=== PATIENT | female | born 1960 | race Caucasian/White ===

== ENCOUNTER 2016-09-18 06:11 | Observation (INO) | payer OTHER ==
[~2016-09-18] VITALS: Ht 152.4 cm; Wt 68.1 kg
[~2016-09-18 06:11] MED LIST: FISHCAP4 PO; VITA250T3 PO
[2016-09-18] MEDS ORDERED: METOPROLOL TARTRATE 25 MG TAB PO PRN (06:30)
[2016-09-18] MEDS ORDERED: LACTATED RINGER'S 1000 ML IV PRN (06:30)
[2016-09-18] MEDS ORDERED: INSULIN HUMAN REGULAR 1,000 UNITS/10 ML VIAL SQ PRN (06:30)
[2016-09-18] MEDS ORDERED: POVIDONE IODINE 5% (ANTISEPSIS KIT) 4 APPLICATIONS EACH NARE PRN (06:30)
[2016-09-18] MEDS ORDERED: SODIUM CHLORID 0.9% 500 ML IV PRN (06:30)
[2016-09-18] MEDS ORDERED: CHLORHEXIDINE GLUCONATE 2 % 1 PACK (2 CLOTHS) TOPICAL PRN (06:30)
[2016-09-18 06:45] VITALS: BP 142/80; PULSE 82; RESP 18; TEMP 97.4; O2SAT 98
[2016-09-18] MEDS ORDERED: VANCOMYCIN 1,000 MG/NS 250 ML IV PRN ×2 (06:45)
[2016-09-18] MEDS ORDERED: SODIUM CHLOR 0.9% 1000 ML INJ 1,000 ML IV SCH (06:45)
[2016-09-18] MEDS ORDERED: MIDAZOLAM HCL 2 MG/2 ML VIAL ONE (07:49)
[2016-09-18] MEDS ORDERED: ACETAMINOPHEN 1000 MG/100 ML VIAL IV ONE (07:49)
[2016-09-18] MEDS ORDERED: ARTIFICIAL TEARS OPTH OINT 3.5 APPLIC/3.5 GM TUBO ONE (07:49)
[2016-09-18] MEDS ORDERED: FAMOTIDINE 20 MG/2 ML VIAL ONE (07:50)
[2016-09-18] MEDS ORDERED: fentaNYL CITRATE 250 MCG/5 ML AMP ONE ×2 (07:50→09:49)
[2016-09-18] MEDS ORDERED: ceFAZolin 2 GM PREMIX 50 ML ONE (07:55)
[2016-09-18] MEDS ORDERED: methylPREDNISolone ACETATE 40 MG/ML VIAL ONE (07:55)
[2016-09-18] MEDS ORDERED: GELFOAM SIZE 100 ONE (07:55)
[2016-09-18] MEDS ORDERED: THROMBIN (TOPICAL) 5,000 UNIT VIAL ONE (07:55)
[2016-09-18] MEDS ORDERED: BUPIVACAINE/EPINEPHRINE 0.5% PF 10 ML VIAL ONE (07:55)
[2016-09-18] MEDS ORDERED: GENTAMICIN SULFATE 80 MG/2 ML VIAL ONE (07:56)
[2016-09-18] MEDS ORDERED: SODIUM CHLORIDE 0.9% FLUSH 10 ML FLUSH IV FLUSH PRN (11:45)
[2016-09-18] MEDS ORDERED: MORPHINE SULFATE 8 MG/ML INJ IV PUSH PRN ×2 (11:45)
[2016-09-18] MEDS ORDERED: ACETAMINOPHEN/HYDROcodone 325 MG/10 MG TAB PO PRN ×2 (11:45)
[2016-09-18] MEDS ORDERED: ACETAMINOPHEN 325 MG TAB PO PRN (11:45)
[2016-09-18] MEDS ORDERED: PHENYLEPH/NS 1000 MCG/10 ML SYR IV ONE (12:00)
[2016-09-18] MEDS ORDERED: PROPOFOL 200 MG/20 ML AMP IV ONE (12:00)
[2016-09-18] MEDS ORDERED: LACTATED RINGER'S 1000 ML INJ 1,000 ML IV ONE (12:00)
[2016-09-18] MEDS ORDERED: NEOSTIGMINE 3 MG/3 ML SYR IV ONE (12:00)
[2016-09-18] MEDS ORDERED: ePHEDrine/NS 25 MG/5 ML SYR IV ONE (12:00)
[2016-09-18] MEDS ORDERED: ONDANSETRON HCL 4 MG/2 ML VIAL IV PUSH ONE (12:00)
--- NOTE | 2016-09-18 12:04 | PD.OP ---
Operative Report Date of Surgery: Sep 18, 2016 Preoperative Diagnosis: L5-S1 disk herniation Postoperative Diagnosis: L5-S1 disk herniation Procedure: L5-S1 disk herniation Anesthesia: general Surgeon: Gigi Oglesby [employer] Supervisor(s): Isabel Guerra Operation and Findings: INDICATIONS FOR THE SURGICAL PROCEDURE Ms Hodges is a 56 female who presented with intractable mechanical back pain and clinical evidence of right S1 lower extremity radiculopathy. He was found to have a disk herniation and extrusion significant stenosis with significant mass effect on the neural structures which correlated with the clinical symptoms. The patient has failed maximum nonsurgical management including multiple modalities of conservative treatment as well as pain management interventions by an interventional pain specialist. A surgical decompression were indicated as a last resort. The [id number] details of the procedure, indications, alternatives, risks and potential complications were fully discussed with the patient. The patient fully understood. All the questions were answered. No guarantees were given. The patient voiced requesting the procedure and signed informed consents. He was offered the alternative of delaying the procedure and continuing with nonsurgical management. DETAILS OF THE SURGICAL PROCEDURE After the induction of general anesthesia, endotracheal intubation was performed. A Benavdies catheter, bilateral AUGIE hose and sequential compression devices were placed and kept throughout the procedure. The patient was positioned prone on a Shilo table over a Michael frame. All pressure points were carefully padded with eggcrate mattress. The eyes were tapped shut after ointment was applied by the anesthesiologist to prevent corneal abrasion. A Yuliet hugger was placed over the exposed lower body to maintain control of the core body temperature. The lower lumbar region was prepped and draped in the usual sterile fashion. A spinal needle was placed for localization and an x- ray performed with a C-arm. A skin incision was made in the midline over the spinous processes L5-S1 with a #10 blade. Small subcutaneous bleeders were controlled with a bipolar and the dissection was carried out through the lumbar fascia exposing the spinous processes. A subperiosteal dissection was performed with a Breen elevator and a Bovie over the right L5-S1 spinous process lamina and facets. A microdiscectomy self-retaining retractor was placed on the incision and an x- ray was obtained with an instrument placed underneath the lamina. At this point in the procedure the operating microscope was draped in the usual sterile fashion and brought to the field. The rest of the surgical procedure was performed using microsurgical dissection technique with exception of the closure. Once the level was confirmed, a decompressive laminectomy was performed at L5- S1 on the right side, using the TPS drill with an AM-8 drill bit. A medial facetectomy was performed and the superior free border of the ligamentum flavum was dissected with a ligament dissector and removed with a thin footplate 2 mm Kerrison The medial facetectomy allowed me to expose the left S1 nerve root, which was identified and followed towards its exit in the foramen. Epidural veins located laterally to the dural sac were coagulated with a bipolar and incised with microscissors. Gentle medial retraction of the dural sac allowed inspection of the disc space. The patient had a disc herniation, causing mass effect over the exiting nerve root. The annulus fibrosus of the disc was coagulated with the bipolar and incised with an 11 blade. The extruded disc was carefully dissected from the surrounding tissue and removed with pituitary forceps. Then, a microdiscectomy was carried out in the standard fashion using straight and up-biting pituitary forceps. A good decompression of the dural sac and nerve root was achieved. The exit of the nerve root was inspected for residual disc fragments and hemostasis was secured with the bipolar. The extruded disk was very adherent to the dural sac, which was thinned. Despite extreme care taken during the dissection, a pinhole was visualized in the dura with CSF leak. This was repaired with 6-0 Prolene and he repair reinforced using duraseal The incision was irrigated with a large amount of saline solution. A Valsalva maneuver failed to show any cerebrospinal fluid leak or bleeding. The decompression was assessed again and found to be satisfactory. 4m of Depomedrol was left over the epidural space. The incision was then closed in layers. The fascia was closed with 0 Vicryl sutures in an interrupted fashion. The superficial fascia was closed with 0 Vicryl sutures. The fascia was infiltrated with 0.5% Marcaine with epinephrine 1:100,000 dilution. The subcutaneous tissue was irrigated then closed with 0 Vicryl and 3-0 Vicryl. The skin was closed with running Ethylon. Dermabond was applied to the skin. A sterile dressing was applied. At the end of the procedure, the sponge, needle and instrument counts were all correct. Estimated blood loss was less than 50 cc. No blood transfusion was given. No intraoperative complications occurred. The patient received prophylactic antibiotics. The patient was then extubated and transferred to the recovery room in stable condition. Gigi Oglesby MD Sep 18, 2016 12:04
--- NOTE | 2016-09-18 12:11 | RADRPT ---
EXAM DATE/TIME: 09/18/2016 09:13 [facility] COMPARISON: No previous studies available for comparison. INDICATIONS : Level Localization L5,S1. MEDICAL HISTORY : None. SURGICAL HISTORY : None. ENCOUNTER: Initial ACUITY: 1 day PAIN SCORE: Non-responsive. LOCATION: Lumbar spine. FINDINGS: Intraoperative examination demonstrates a localizing probe pointing towards S1. CONCLUSION: Intraoperative changes as above. Gage Elmore MD on September 18, 2016 at 12:09 Board Certified Radiologist. This report was verified electronically.
[2016-09-18] MEDS: NS + KCL 20 MEQ INJ 1,000 ML IV SCH ×3 (13:11→23:43)
[2016-09-18] MEDS ORDERED: DO NOT ADM ANY ANTICOAGULANT DRUGS PRN (13:15)
[2016-09-18 13:30] VITALS: BP 112/59; PULSE 104; RESP 20; TEMP 98.1; O2SAT 97
[2016-09-18] MEDS: ceFAZolin 2 GM PREMIX 50 ML IV SCH ×2 (15:03→23:43)
[2016-09-18 16:30] VITALS: BP 113/66; PULSE 97; RESP 18; TEMP 97.4; O2SAT 98
[2016-09-18 20:00] VITALS: BP 113/53; PULSE 98; RESP 19; TEMP 96.7; O2SAT 97
[2016-09-18] MEDS: DOCUSATE SODIUM 100 MG CAP PO SCH (20:55)
[2016-09-18] MEDS: SODIUM CHLORIDE 0.9% FLUSH 10 ML FLUSH IV FLUSH SCH (20:55)
[2016-09-19] VITALS: BP 107/58; PULSE 95; RESP 15; TEMP 96.7; O2SAT 98
[2016-09-19 04:00] VITALS: BP 108/56; PULSE 86; RESP 16; TEMP 97.7; O2SAT 98
[2016-09-19 07:36] VITALS: BP 125/67; PULSE 86; RESP 17; TEMP 98.4; O2SAT 98
[2016-09-19] MEDS ORDERED: PANTOPRAZOLE SOD 40 MG DELAYED RELEASE TAB PO SCH (09:00)
[2016-09-19] MEDS ORDERED: NON-FORMULARY DRUG (Fish Oil-Cholecalciferol (Fish Oil + D3) 1 CAP) PO SCH (09:00)
[2016-09-19] MEDS: ceFAZolin 2 GM PREMIX 50 ML IV SCH (09:07)
[2016-09-19] MEDS: DOCUSATE SODIUM 100 MG CAP PO SCH (09:07)
[2016-09-19] MEDS: SODIUM CHLORIDE 0.9% FLUSH 10 ML FLUSH IV FLUSH SCH (09:08)
[2016-09-19] MEDS ORDERED: HYDR-3583 PO (09:17)
[2016-09-19 10:04] VITALS: O2SAT 97
--- NOTE | 2016-09-19 10:21 | HHI.DCPOC ---
Discharge Care Plan Diagnosis: (1) S/P lumbar laminectomy Goals to Promote Your Health * To prevent worsening of your condition and complications * To maintain your health at the optimal level Directions to Meet Your Goals Take your medications as prescribed Follow your dietary instruction Follow activity as directed Keep your appointments as scheduled Take your immunizations and boosters as scheduled If your symptoms worsen call your PCP, if no PCP go to Urgent Care Center or Emergency Room Smoking is Dangerous to Your Health. Avoid second hand smoke Call the 24-hour hour crisis hotline for domestic abuse at Rossana Berrios Sep 19, 2016 10:21
--- NOTE | 2016-09-19 10:27 | HHI.DS ---
Discharge Summary Admission Date Sep 18, 2016 at 11:38 Discharge Date: Sep 19, 2016 Admitting Diagnosis s/p lumbar laminectomy (1) S/P lumbar laminectomy ICD Code: Z98.890 Brief History Ms Hodges is a 56 female who presented with intractable mechanical back pain and clinical evidence of right S1 lower extremity radiculopathy. He was found to have a disk herniation and extrusion significant stenosis with significant mass effect on the neural structures which correlated with the clinical symptoms. The patient has failed maximum nonsurgical management including multiple modalities of conservative treatment as well as pain management interventions by an interventional pain specialist. A surgical decompression were indicated as a last resort. Imaging Last Impressions Lumbar Spine X-Ray 09/18/16 0000 Signed Impressions: Service Date/Time: Sunday, September 18, 2016 09:13 - CONCLUSION: Intraoperative changes as above. Gage Elmore MD PE at Discharge Ms. Hodges is alert, in no apparent distress. Speech is fluent. Mentation intact. Incision is clean and dry, with Dermabond prineo dressing in place. Cranial nerve examination: pupils equal, round. Extra-ocular movements are intact. Facial motor are normal and symmetrical. Muscle strength: moves upper extremities symmetrically. 5/5 to both iliopsoas, quadriceps, hamstrings, plantarflexion, dorsiflexion, and EHL in the lower extremities. Reports paresthesias in the right foot. Respiratory: nonlabored Hospital Course Ms. Hodges underwent a L5-S1 laminectomy and microdiscectomy on Sep 18, 2016. Her surgery went well without complications. She reports residual paresthesias in the foot. She will be discharged home in stable conditions. Wound care and activity restrictions were discussed. Pt Condition on Discharge: Stable Discharge Disposition: Discharge Home Discharge Instructions DIET: Follow Instructions for: Heart Healthy Diet ACTIVITIES You can perform: Weight Bearing As Maria ADDITIONAL Activity Instructio: Avoid strenuous activities, heavy lifting, overhead activities, repetitive bending, twisting, pushing, pulling or any activities which might result in stress over the spine. Avoid situtation that will put at risk for falls. Use assistive device as needed for walking. Wear lumbar brace when out of bed. New Medications: Hydrocodone-Acetaminophen (Hydrocodone-Acetaminophen) 10-325 mg Tab 1 TAB PO Q8HR PRN PAIN SCALE 1 TO 10 #90 Ref 0 TAB Continued Medications: Ascorbic Acid (Vitamin C) 250 Mg Tab 250 MG PO Nutritional Supplement Ref 0 TAB Fish Oil-Cholecalciferol (Fish Oil + D3) 1,200-1,000 Mg-Unit Cap 1 CAP PO DAILY Nutritional Supplement #30 Ref 0 CAP Rossana Berrios Sep 19, 2016 10:27
[2016-09-19 11:57] VITALS: BP 129/63; PULSE 91; RESP 17; TEMP 96.9; O2SAT 96
== END 2016-09-19 13:28 | disposition home or self-care (01) ==
LOC: HSDC 06:11 → HSDI 11:38 → N06B 13:49
PROVIDERS: ADMIT Neurological Surgery; ATTEND Neurological Surgery
PROC: 0SB40ZZ Excision of Lumbosacral Disc, Open Approach (ICD-10-PCS; principal; 2016-09-18 08:16)
DX: M51.27 Other intervertebral disc displacement, lumbosacral region (principal)
CPT/HCPCS: 00670; 63056; 69990; 72020; 76000; 94150; 97163; G0378; G8987; G8988; J0131; J0690; J1580; J2250; J2370; J2405; J2710; J3010; J3370; J3480; J7050; J7120; L0627; J1030